=== PATIENT | female | born 1990 | race African-American/Black ===

== ENCOUNTER 2017-02-18 21:38 | Emergency (ER) | payer OTHER ==
[~2017-02-18] VITALS: Ht 162.6 cm; Wt 73.5 kg
[2017-02-18] MEDS ORDERED: IBUP600T26 PO (21:53)
[2017-02-18] MEDS ORDERED: TYLE325T5 PO (21:53)
[2017-02-19 02:50] LABS: BASO % 0.3 % (0.0-1.0); EOS # 0.1 K/mm3 (0.0-0.50); EOS % 1.8 % (0.0-3.0); LARGE UNSTAINED CELL # 0.2 K/mm3 (0.0-0.4); LARGE UNSTAINED CELL % 2.5 % (0.0-4.0); LYMPH # 1.8 K/mm3 (1.5-6.5); LYMPH % 27.1 % (24.0-44.0); MEAN CORPUSCULAR HEMOGLOBIN 30.3 pg (27.0-33.0); MEAN CORPUSCULAR HGB CONC 32.5 g/dl (32.0-36.5); MEAN CORPUSCULAR VOLUME 93.1 fl (80.0-96.0); MONO # 0.3 K/mm3 (0.0-0.8); MONO % 5.2 % (0.0-5.0); NEUTROPHILS # 3.7 K/mm3 (1.8-7.7); PLATELET COUNT, AUTOMATED 224 k/mm3 (150-450); RED CELL DISTRIBUTION WIDTH 13.6 % (11.5-14.5); WHITE BLOOD COUNT 5.9 K/mm3 (4.0-10.0)
[2017-02-19 03:09] LABS: ANION GAP 6 MEQ/L (8-16); BLOOD UREA NITROGEN 15 MG/DL (7-18); CALCIUM LEVEL 9.1 MG/DL (8.5-10.1); CARBON DIOXIDE LEVEL 28 MEQ/L (21-32); CHLORIDE LEVEL 107 MEQ/L (98-107); CREATININE FOR GFR 0.66 MG/DL (0.55-1.02); GLOMERULAR FILTRATION RATE > 60.0 (>60); GLUCOSE, FASTING 95 MG/DL (70-105); POTASSIUM SERUM 3.9 MEQ/L (3.5-5.1); SODIUM LEVEL 141 MEQ/L (136-145)
[2017-02-19] MEDS ORDERED: METOCLOPRAMIDE INJ 10MG/2ML VIAL (J2765) IV ONE (04:30)
[2017-02-19] MEDS ORDERED: NS 1,000 ML IV ONE (04:30)
--- NOTE | 2017-02-19 05:20 | REPUSA ---
CLINICAL HISTORY: Headaches. TECHNIQUE: Multiple axial brain CT scan sections were obtained from base to vertex without contrast a dministration. COMMENTS: The study shows normal configuration of sella turcica. There are no intra or extra-axial collections. There is no mass effect or midline shift. There is no evidence of hematoma formation. No hydrocephal us is present. No abnormal calcifications are noted. No significant abnormalities are seen either in the posterior fossa or supratentorial compartment. The sinuses and mastoid air cells are patent. IMPRESSION: No evidence of acute intracranial pathology. Thank you for your kind referral of this patient.
[2017-02-19 06:13] VITALS: BP 113/55
== END 2017-02-19 06:21 | disposition home or self-care (01) ==
LOC: M ED 02-19 00:22
DX: R51 Headache (principal); R11.2 Nausea with vomiting, unspecified

== ENCOUNTER → 2018-06-29 | Outpatient (REF) | payer OTHER ==
[2018-06-29 18:13] LABS: HCG, SERUM QUANTITATIVE < 1.0 MIU/ML
== END ==
LOC: M LAB REF 17:05
DX: Z32.00 Encounter for pregnancy test, result unknown (principal)

== ENCOUNTER → 2018-07-22 | Outpatient (REF) | payer OTHER ==
[2018-07-22 13:09] LABS: HCG, SERUM QUANTITATIVE 1246 MIU/ML
== END ==
LOC: M LAB REF 12:25
DX: Z32.00 Encounter for pregnancy test, result unknown (principal)

== ENCOUNTER 2018-07-31 10:15 | Emergency (ER) | payer OTHER ==
[2018-07-31 11:37] LABS: BASO % 0.3 % (0.0-1.0); EOS % 0.6 % (0.0-3.0); HEMATOCRIT 37.1 % (36.0-47.0); HEMOGLOBIN 12.7 g/dl (12.0-15.5); IMMATURE GRANULOCYTE % 0.5 % (0-3.0); MEAN CORPUSCULAR HEMOGLOBIN 30.8 pg (27.0-33.0); MEAN CORPUSCULAR HGB CONC 34.2 g/dl (32.0-36.5); MEAN CORPUSCULAR VOLUME 89.8 fl (80.0-96.0); MONO # 0.6 10^3/uL (0.0-0.8); MONO % 8.3 % (0.0-5.0); NEUTROPHILS % 60.3 % (36.0-66.0); PLATELET COUNT, AUTOMATED 246 10^3/uL (150-450); RED BLOOD COUNT 4.13 10^6/uL (4.00-5.40); RED CELL DISTRIBUTION WIDTH 13.3 % (11.5-14.5); WHITE BLOOD COUNT 6.6 10^3/uL (4.0-10.0)
[2018-07-31 11:40] LABS: HCG, SERUM QUANTITATIVE 23023 MIU/ML
[2018-07-31 13:13] LABS: TYPE AND SCREEN 1 1
[2018-07-31] MEDS: RHOGAM 300 MCG (1500 IU) INJ (J2790) IM (13:30)
== END 2018-07-31 14:03 | disposition home or self-care (01) ==
LOC: M ED 10:15
PROVIDERS: Surgery Vascular Surgery
DX: O20.9 Hemorrhage in early pregnancy, unspecified (principal); Z3A.01 Less than 8 weeks gestation of pregnancy
CPT/HCPCS: 76801

== ENCOUNTER → 2018-08-16 | Outpatient (CLI) | payer OTHER ==
[2018-08-16 13:36] LABS: BASO % 0.5 % (0.0-1.0); EOS % 0.5 % (0.0-3.0); HEMATOCRIT 34.4 % (36.0-47.0); HEMOGLOBIN 11.7 g/dl (12.0-15.5); IMMATURE GRANULOCYTE % 0.2 % (0-3.0); LYMPH # 1.9 10^3/uL (1.5-4.5); LYMPH % 30.2 % (24.0-44.0); MEAN CORPUSCULAR HEMOGLOBIN 30.4 pg (27.0-33.0); MEAN CORPUSCULAR VOLUME 89.4 fl (80.0-96.0); MONO # 0.6 10^3/uL (0.0-0.8); MONO % 9.1 % (0.0-5.0); NEUTROPHILS # 3.7 10^3/uL (1.8-7.7); NEUTROPHILS % 59.5 % (36.0-66.0); PLATELET COUNT, AUTOMATED 226 10^3/uL (150-450); RED BLOOD COUNT 3.85 10^6/uL (4.00-5.40); WHITE BLOOD COUNT 6.1 10^3/uL (4.0-10.0)
[2018-08-16 15:26] LABS: CHLAMYDIA DNA AMPLIFICATION NEGATIVE (NEGATIVE); GC DNA AMPLIFICATION NEGATIVE (NEGATIVE)
[2018-08-17 08:15] LABS: HEPATITIS C VIRUS ABY INDEX 0.1 INDEX (<0.8)
[2018-08-17 08:15] LABS: HBsAg Prenatal NEGATIVE (NEGATIVE); HIV 1&2 SCREEN CENTAUR NEGATIVE (NEGATIVE); RUBELLA IgG QUALITATIVE IMMUNE (IMMUNE)
== END ==
LOC: M SMT 10:19
DX: Z34.81 Encounter for supervision of other normal pregnancy, first trimester (principal); Z3A.08 8 weeks gestation of pregnancy
CPT/HCPCS: 86762

== ENCOUNTER → 2018-09-15 | Outpatient (REF) | payer OTHER ==
[~2018-09-15] MED LIST: IBUP-1022 PO; PRENTAB77 PO; TYLE325T5 PO
== END ==
LOC: M LAB REF 13:00
PROVIDERS: ATTEND Obstetrics & Gynecology
DX: Z34.81 Encounter for supervision of other normal pregnancy, first trimester (principal)

== ENCOUNTER → 2018-10-21 | Outpatient (CLI) | payer OTHER ==
--- NOTE | 2018-10-21 15:58 | REP ---
Obstetric sonography: History: Supervision of for anatomy. Findings: Scanning through the gravid uterus demonstrates a viable single intrauterine gestation in a vertex lie. motion is observed and heart rate is recorded at 160 beats per minute. An anterior grade 1 placenta is seen without evidence of previa or abruption. Amniotic fluid is subjectively normal. Closed cervical length is measured transvaginally at 4.1 cm. Cervix is closed. A small quantity of endocervical fluid is seen. No extrauterine abnormalities observed. There has been appropriate interval growth. No anomaly is seen. Four-chamber heart and outflow tract views are less than optimally seen today due to position. The following additional anatomic structures are identified today and felt to be unremarkable: cranium, choroid plexus, cavum, cerebellum posterior fossa, face and profile, lungs, diaphragm, left-sided stomach, abdominal wall cord insertion, three-vessel umbilical cord, kidneys and bladder, spine, upper and lower extremities. Biometry chart: BPD 4.1 cm 18 weeks 2 days Head circumference 14.8 cm 17 weeks 6 days Abdominal circumference 13.3 cm 18 weeks 5 days Femur length 2.7 cm 18 weeks 2 days Humeral length 2.8 cm 18 weeks 6 days Cerebellar diameter 1.7 cm 17 weeks 2 days HC/AC ratio normal 1.11 cephalic index normal 0.77, estimated weight 241 grams, 0 pounds 8 ounces, 60th percentile for 18 weeks 1 days. Impression: Viable single intrauterine gestation at 18 weeks 1 day by today's composite criteria for expected gestational age estimate based on prior sonography is 18 weeks 1 day as well. SABI by prior sonography March 23, 2019. heart visualization is less than optimally achieved due to position. Electronically Signed by Tanner Garcia MD 10/21/2018 04:45 P
== END ==
LOC: M SMT 12:18
PROVIDERS: ATTEND Obstetrics & Gynecology
DX: Z36.89 Encounter for other specified antenatal screening (principal); Z3A.18 18 weeks gestation of pregnancy

== ENCOUNTER 2018-11-13 14:34 | Emergency (ER) | payer OTHER ==
[~2018-11-13] VITALS: Ht 162.6 cm; Wt 81.4 kg
[2018-11-13] MEDS ORDERED: PROM25TA22 (14:44)
[2018-11-13] MEDS ORDERED: RANI150T (14:44)
[2018-11-13] MEDS ORDERED: ACET1TAB55 PO (14:44)
[2018-11-13 15:13] LABS: BASO % 0.4 % (0.0-1.0); EOS # 0.1 10^3/uL (0.0-0.50); EOS % 0.5 % (0.0-3.0); HEMATOCRIT 34.2 % (36.0-47.0); HEMOGLOBIN 11.8 g/dl (12.0-15.5); LYMPH # 1.5 10^3/uL (1.5-4.5); LYMPH % 15.8 % (24.0-44.0); MEAN CORPUSCULAR HEMOGLOBIN 32.3 pg (27.0-33.0); MEAN CORPUSCULAR HGB CONC 34.5 g/dl (32.0-36.5); MEAN CORPUSCULAR VOLUME 93.7 fl (80.0-96.0); MONO # 1.1 10^3/uL (0.0-0.8); MONO % 11.3 % (0.0-5.0); NEUTROPHILS # 6.9 10^3/uL (1.8-7.7); PLATELET COUNT, AUTOMATED 218 10^3/uL (150-450); RED BLOOD COUNT 3.65 10^6/uL (4.00-5.40); WHITE BLOOD COUNT 9.8 10^3/uL (4.0-10.0)
[2018-11-13] MEDS ORDERED: NS 1,000 ML IV ONE (15:30)
[2018-11-13] MEDS ORDERED: ONDANSETRON 4MG/2ML VIAL (J2405) IV ONE (15:30)
[2018-11-13] MEDS ORDERED: diphenhydrAMINE INJ 50MG/ML VIAL (J1200) IV ONE (15:30)
[2018-11-13 15:38] LABS: INR 0.86; PROTHROMBIN TIME 11.8 SECONDS (12.1-14.4)
[2018-11-13 15:39] LABS: PARTIAL THROMBOPLASTIN TIME 24.6 SECONDS (25.4-37.6)
[2018-11-13 15:41] LABS: ALBUMIN 2.7 GM/DL (3.2-5.2); ALT/SGPT 64 U/L (12-78); BILIRUBIN,TOTAL 0.1 MG/DL (0.2-1.0); BLOOD UREA NITROGEN 4 MG/DL (7-18); CALCIUM LEVEL 8.7 MG/DL (8.5-10.1); CARBON DIOXIDE LEVEL 23 MEQ/L (21-32); CHLORIDE LEVEL 103 MEQ/L (98-107); CK-MB VALUE MASS < 1.0 NG/ML (<3.6); CPK CREATINE PHOSPHOKINASE 52 U/L (26-192); CREATININE FOR GFR 0.58 MG/DL (0.55-1.30); GLOMERULAR FILTRATION RATE > 60.0 (>60); GLUCOSE, FASTING 248 MG/DL (70-100); MB/CK RELATIVE INDEX 1.92 (< OR =4); POTASSIUM SERUM 3.9 MEQ/L (3.5-5.1); SODIUM LEVEL 136 MEQ/L (136-145); TOTAL PROTEIN 6.7 GM/DL (6.4-8.2); TROPONIN I < 0.02 NG/ML (< 0.10)
[2018-11-13 15:58] LABS: APPEARANCE, URINE CLEAR (CLEAR); BACTERIA, URINE AUTO NEGATIVE (NEGATIVE); BILIRUBIN, URINE AUTO NEGATIVE (NEGATIVE); BLOOD, URINE BLOOD 1+ (NEGATIVE); COLOR, URINE STRAW (YELLOW); GLUCOSE, URINE (UA) AUTO 3+ mg/dL (NEGATIVE); KETONE, URINE AUTO NEGATIVE (NEGATIVE); LEUKOCYTE ESTERASE, URINE AUTO NEGATIVE (NEGATIVE); NITRITE, URINE AUTO NEGATIVE (NEGATIVE); PROTEIN, URINE AUTO NEGATIVE (NEGATIVE); RBC, URINE AUTO 1 /HPF (0-3); SPECIFIC GRAVITY URINE AUTO 1.001 (1.002-1.035); SQUAMOUS EPITHELIAL CELL UR AU 1 /HPF (0-6); UROBILINOGEN, URINE AUTO 0.2 mg/dL (0.0-2.0); WBC, URINE AUTO 0 /HPF (0-3)
[2018-11-13] MEDS ORDERED: ISOVUE-370 76% 100ML VIAL (Q9967) As Ordered ONE (16:11)
--- NOTE | 2018-11-13 16:45 | ECGEPIP ---
Stationary ECG Study [place] - ED Test Date: 2018-11-13 Pat Name: ANTHONY ISAACS Department: Room: - Gender: F Program Technician: max : 1990 Requested By: JOHN Warner PA-C Order Number: [id number] Reading MD: Aye Cortez Measurements Intervals [place] Rate: 119 P: 28 CA: 133 QRS: 20 QRSD: 85 T: 11 QT: 295 QTc: 416 Interpretive Statements SINUS TACHYCARDIA NONSPECIFIC T-WAVE ABNORMALITY ABNORMAL RHYTHM ECG NO PRIOR FOR COMPARISON Electronically Signed On 11-13-2018 16:44:53 EST by Aye Cortez
[2018-11-13] MEDS ORDERED: FIORICET TAB PO ONE (18:45)
[2018-11-13] MEDS ORDERED: FIOR1CAP PO (18:46)
[2018-11-13] MEDS ORDERED: ONDA4TAB6 PO (18:46)
[2018-11-13 18:53] VITALS: BP 147/59
--- NOTE | 2018-11-14 07:24 | REP ---
CT ANGIOGRAM CHEST: 11/13/2018. Clinical history: 21 - 22 weeks , dyspnea, tachycardia, evaluate for pulmonary emboli. Technique: The patient received bolus 75 ml Isovue 370, scanning through the chest with CT angiogram protocol. Coronal and sagittal MIP and standard reformats provided. Findings: There are no prior studies. Lung ramos are well inflated. There is no effusion, infiltrate, significant atelectasis or mass. No pleural plaques, pneumothorax or pneumomediastinum. The heart is not enlarged. There no pericardial thickening or effusion. Aorta is without aneurysm or dissection. The main, right and left pulmonary arteries in the mediastinum are without filling defect. The lobar, segmental and subsegmental pulmonary arteries are well seen and without filling defect or vessel cutoff. No pathologic sized mediastinal or hilar adenopathy. There is no axillary or supraclavicular mass. Bone windows show sternum, manubrium, clavicles, scapula, humeral heads, ribs and spine all without fracture, destructive lesion or compression deformity. Upper abdomen shows that portion of the liver and spleen to be unremarkable. Only a portion of gallbladder and pancreas are included and are intact. No hiatal hernia. Adrenal glands are normal. Upper poles kidneys intact. Impression: 1. No CT evidence of pulmonary thromboembolism. 2. No aortic aneurysm or dissection. 3. There is no consolidation or infiltrate, pneumothorax, pneumomediastinum, focal bone lesion of the chest or other acute finding. 4. Visualized portions of the upper abdomen unremarkable. Electronically Signed by Felix Main MD 11/14/2018 09:23 A
== END 2018-11-13 19:14 | disposition home or self-care (01) ==
LOC: M ED 14:34
DX: O24.419 Gestational diabetes mellitus in pregnancy, unspecified control (principal); O99.89 Other specified diseases and conditions complicating pregnancy, childbirth and the puerperium; R51 Headache; R00.0 Tachycardia, unspecified; R94.31 Abnormal electrocardiogram [ECG] [EKG]; Z3A.22 22 weeks gestation of pregnancy; Z79.899 Other long term (current) drug therapy
CPT/HCPCS: 71275; 80053; 81001; 82550; 82553; 84484; 85025; 85610; 85730; 86901; 93005; 96374; 96375; 99284; J1200; J2405; Q9967

== ENCOUNTER → 2018-11-18 | Outpatient (CLI) | payer OTHER ==
[~2018-11-18] MED LIST changes: +ACET1TAB55 PO; +FIOR1CAP PO; +ONDA4TAB6 PO; +PROM25TA22; +RANI150T
[2018-11-18 14:21] LABS: HEMATOCRIT 33.6 % (36.0-47.0); HEMOGLOBIN 11.2 g/dl (12.0-15.5); MEAN CORPUSCULAR HEMOGLOBIN 31.6 pg (27.0-33.0); MEAN CORPUSCULAR HGB CONC 33.3 g/dl (32.0-36.5); MEAN CORPUSCULAR VOLUME 94.9 fl (80.0-96.0); PLATELET COUNT, AUTOMATED 219 10^3/uL (150-450); RED BLOOD COUNT 3.54 10^6/uL (4.00-5.40); WHITE BLOOD COUNT 7.9 10^3/uL (4.0-10.0)
--- NOTE | 2018-11-18 14:59 | REP ---
Clinical: Anatomical evaluation. Comparison: 10/21/2018 . Findings: Examination demonstrates a single live intrauterine in cephalic presentation. motion is identified by technologist. Placenta is noted anterior and grade the grade one without evidence for placenta previa or abruption. Amniotic fluid volume is increased and suggests polyhydramnios. Cervix measures 4.4 cm in length and appears closed. Nuchal cord cannot be excluded. Gestational age by LMP 22 weeks 1 day with SABI 03/23/2019 . Gestational age by current measurements 22 weeks 0 days with SABI 03/24/2019 . FHR equals 144 beats per minute. Estimated weight 533 grams ( 68th percentile). Amniotic fluid index: 21.5 cm (9.7 - 21.6). Anatomical assessment demonstrates normal structures including cranium, choroid plexus, cavum, cerebellum/posterior fossa, facial features, lungs, four-chamber heart/ventricular outflow tracts, diaphragm, stomach, cord insertion/three-vessel cord, kidneys/bladder, spine, and extremities. Impression: 1. Single live intrauterine in cephalic presentation demonstrating appropriate interval growth. 2. Amniotic fluid volume is at upper limits of normal and subjectively suggests polyhydramnios. 3. Anatomical assessment is complete and normal. 4. Nuchal cord cannot be excluded. Electronically Signed by Sam Joe MD 11/18/2018 02:51 P
== END ==
LOC: M SMT 09:32
PROVIDERS: ATTEND Obstetrics & Gynecology
DX: Z34.82 Encounter for supervision of other normal pregnancy, second trimester (principal)

== ENCOUNTER → 2018-12-16 | Outpatient (CLI) | payer OTHER ==
[2018-12-16 13:16] LABS: BASO % 0.4 % (0.0-1.0); EOS % 0.4 % (0.0-3.0); HEMATOCRIT 30.7 % (36.0-47.0); LYMPH # 1.4 10^3/uL (1.5-4.5); LYMPH % 19.8 % (24.0-44.0); MEAN CORPUSCULAR HEMOGLOBIN 31.2 pg (27.0-33.0); MEAN CORPUSCULAR HGB CONC 32.6 g/dl (32.0-36.5); MEAN CORPUSCULAR VOLUME 95.6 fl (80.0-96.0); MONO % 13.7 % (0.0-5.0); NEUTROPHILS # 4.7 10^3/uL (1.8-7.7); NEUTROPHILS % 64.5 % (36.0-66.0); PLATELET COUNT, AUTOMATED 195 10^3/uL (150-450); RED BLOOD COUNT 3.21 10^6/uL (4.00-5.40); WHITE BLOOD COUNT 7.2 10^3/uL (4.0-10.0)
[2018-12-16 13:32] LABS: HEMOGLOBIN A1c 7.8 %
--- NOTE | 2018-12-16 14:23 | REP ---
OBSTETRIC SONOGRAPHY: HISTORY: Supervision of . growth study. Biophysical profile. Gestational diabetes. FINDINGS: Scanning through the gravid uterus demonstrates a viable single intrauterine gestation in a cephalic lie. motion is observed, and heart rate is recorded at 153 beats per minute. An anterior grade 1 placenta is seen without evidence of previa. Amniotic fluid is subjectively increased. Closed cervical length viewed transabdominally is 5.5 cm. No extrauterine abnormalities observed. There has been appropriate interval growth. The following anatomic structures are again identified and felt to be unremarkable: cranium, face and profile, diaphragm, left-sided stomach, abdominal wall cord insertion, three-vessel cord, kidneys, and bladder. BIOMETRY CHART: BPD 6.6 cm = 26 weeks 5 days Head circumference 24.1 cm = 26 weeks 2 days Abdominal circumference 24.5 cm = 28 weeks 5 days Femur length 5.0 cm = 26 weeks 6 days Humeral length 4.7 cm = 27 weeks 4 days HC/AC ratio normal 0.98 Cephalic index normal 0.77 Estimated weight 1120 grams, 2 pounds 7 ounces, 89th percentile for 26 weeks 1 day. JENA 18.8 cm (9.7 to 22.3 cm. Biophysical profile score 8 out of a possible 8. S/D ratio in the umbilical cord artery by Doppler normal 3.80. IMPRESSION: Viable single intrauterine gestation at 26 weeks 4 days by today's composite sonographic criteria. Expected gestational age estimate based on prior sonography is 26 weeks 1 day. SABI by prior sonography March 23, 2019. Appropriate interval growth. Subjectively increased amniotic fluid volume. JENA in the normal range at 18.8 cm. Electronically Signed by Tanner Garcia MD 12/16/2018 04:14 P
== END ==
LOC: M SMT 09:12
PROVIDERS: ATTEND Obstetrics & Gynecology
DX: O24.112 Pre-existing type 2 diabetes mellitus, in pregnancy, second trimester (principal); Z3A.26 26 weeks gestation of pregnancy

== ENCOUNTER → 2019-01-05 | Outpatient (CLI) | payer OTHER ==
--- NOTE | 2019-01-06 05:11 | REP ---
Clinical: Anatomical evaluation. Comparison: 12/16/2018 . Findings: Examination demonstrates a single live intrauterine in breech presentation. motion is identified by technologist. Placenta is noted anterior and grade II without evidence for placenta previa or abruption. Polyhydramnios is appreciated and the amniotic fluid index equals 32.9 cm. Cervix appears closed. No evidence for nuchal cord. Gestational age by LMP 29 weeks 0 days with SABI 03/23/2019 . Gestational age by current measurements 30 weeks 3 day with SABI 03/13/2019 . FHR equals 157 beats per minute. BPD 7.5 cm 30 weeks 1 day HC 27.5 cm 30 weeks 1 day AC 29.0 cm 33 weeks 0 days (greater than 95th percentile) FL 5.6 cm 29 weeks 4-day HL 5.0 cm 29 weeks 1 day HC/AC ratio 0.95 Estimated weight 1767 grams (> 97% percentile). Anatomical assessment demonstrates normal structures including cranium, choroid plexus, cavum, cerebellum/posterior fossa, facial features, lungs, four-chamber heart/ventricular outflow tracts, diaphragm, stomach, cord insertion/three-vessel cord, kidneys/bladder, spine, and extremities. Impression: 1. Live fetus in breech presentation demonstrating greater than expected estimated weight. 2. Polyhydramnios. 3. No obvious anatomical abnormality. Electronically Signed by Sam Joe MD 01/06/2019 05:03 A
== END ==
LOC: M RAD 13:31
PROVIDERS: ATTEND Obstetrics & Gynecology
DX: O24.112 Pre-existing type 2 diabetes mellitus, in pregnancy, second trimester (principal)

== ENCOUNTER → 2019-01-16 | Outpatient (CLI) | payer OTHER ==
--- NOTE | 2019-01-16 14:07 | REP ---
OB ULTRASOUND, BIOPHYSICAL PROFILE: Real-time sonographic evaluation of gravid uterus performed. There is a single living intrauterine gestation, estimated gestational age 30 weeks 4 days, EDC 03/23/2019. Cervix is closed and measures 3.7 cm in length. heart rate 136 beats per minute. Amniotic fluid appears polyhydramnios. JENA is 32.9, which is above normal range of 8.9 to 23.6. Biophysical profile score is 8/8. S/D ratio 2.96 is below normal range of 3.3 to 4.7. RI 0.66 is within normal range of 6.63 to 0.79. position is vertex. Placenta is anterior and grade 2 with no previa or abruption. Electronically Signed by Melchor Miles MD 01/16/2019 05:42 P
== END ==
LOC: M RAD 12:12
PROVIDERS: ATTEND Obstetrics & Gynecology
DX: O24.113 Pre-existing type 2 diabetes mellitus, in pregnancy, third trimester (principal); Z3A.30 30 weeks gestation of pregnancy

== ENCOUNTER 2019-01-25 14:23 | Outpatient (CLI) | payer OTHER ==
[~2019-01-25] VITALS: Ht 162.6 cm; Wt 93.4 kg
[2019-01-25 14:45] VITALS: BP 120/68
[2019-01-25 15:06] VITALS: BP 104/57
--- NOTE | 2019-01-25 15:59 | REP ---
BIOPHYSICAL PROFILE: HISTORY: Nonreactive NST. COMPARISON: 01/16/2019 A single intrauterine is present in vertex presentation. heart rate is 144 beats per minute. The placenta is anterior. There is no placenta previa or abruption. The amniotic fluid index is 17.6 cm. Biophysical profile is 8/8. PSV is 47 cm/s. SD ratio 2.69. RI 0.63 IMPRESSION:The biophysical profile is 8/8. Electronically Signed by Mikel Blount MD 01/25/2019 04:12 P
--- NOTE | 2019-01-25 16:44 | IPN ---
DATE: 01/25/2019 Kristy is a 28-year-old 2, para 1-0-0-1 at 31-6/7 weeks gestation with an EDC of 03/23/2019 based on last menstrual period and confirmed by first trimester ultrasound. She presents to labor and delivery today following routine visit in the office with a nonreactive NST. She denies any vaginal bleeding, leakage of fluid and contractions. Her fetus has been active. care initiated at [facility] in the first trimester. course complicated by a prior section with desire for repeat, insulin dependent diabetes, polyhydramnios. OBSTETRICAL HISTORY February 26, 2011: 40 weeks gestation, 9 pounds 12 ounces male, section due to macrosomia. OBSTETRIC LABS: A-, antibody screen negative, rubella immune, VDRL nonreactive. Hep B surface antigen negative, HIV negative. Hep C antibody nonreactive. Gonorrhea, chlamydia negative. Hemoglobin A1c 7.8 with an estimated average glucose 177. Urine culture no growth. PAST MEDICAL HISTORY Noncontributory. SURGERIES section. FAMILY HISTORY Asthma. SOCIAL HISTORY The patient is . She is a nonsmoker. Denies alcohol and drug use. No history of any sexually transmitted infections. Denies history of abuse physical, sexual and emotional. ALLERGIES: No known drug allergies. CURRENT MEDICATIONS - insulin regimen every a.m. 48 units of NPH, 30 of regular every p.m. and 34 units of NPH, 26 of regular. - vitamins - Zofran as needed (p.r.n.) - Zantac 150 by mouth twice a day OBJECTIVE Temperature 97.4, pulse 129, respirations 16, BP is 120/68, heart rate 145 with moderate variability. She underwent a biophysical profile that returned a score of 8 out of 8. Her amniotic fluid index is 17.6 cm today. Fetus is in cephalic presentation. There is no pattern of regular contractions. Sterile vaginal exam deferred. ASSESSMENT Intrauterine at 31-6/7 weeks. BPP 8 out of 8. Insulin-dependent diabetes. PLAN Per consult with Dr. Arabella Matson discharge the patient to home. She is to continue her insulin as ordered. Continue antepartum testing ,weekly visits. The plan is for section, currently at 37 weeks. I did review signs and symptoms of labor, kick counts and danger signs to report. Reviewed access to care. The patient has had all her questions answered and is agreeable to this plan. JOSE
== END 2019-01-25 16:49 | disposition home or self-care (01) ==
LOC: M LDO 14:23
PROVIDERS: ATTEND Obstetrics & Gynecology
DX: O26.893 Other specified pregnancy related conditions, third trimester (principal); Z3A.31 31 weeks gestation of pregnancy; O24.313 Unspecified pre-existing diabetes mellitus in pregnancy, third trimester; Z87.59 Personal history of other complications of pregnancy, childbirth and the puerperium
CPT/HCPCS: 59025; 76815; 76819; 76820; G0378; G0463

== ENCOUNTER → 2019-02-02 | Outpatient (CLI) | payer OTHER ==
--- NOTE | 2019-02-03 05:26 | REP ---
Clinical: well-being. Comparison: 01/25/2019 . Findings: Examination demonstrates a single live intrauterine in cephalic presentation. motion is identified by technologist. Placenta is noted anterior and grade grade II without evidence for placenta previa or abruption. Amniotic fluid volume is normal. Cervix appears closed. No evidence for nuchal cord. Gestational age by LMP 33 weeks 0 days with SABI 03/23/2019 . Gestational age by current measurements 34 weeks 6 days with SABI 03/10/2019 . FHR equals 147 beats per minute. BPD 8.5 cm 34 weeks 1 day HC 31.8 cm 35 weeks 5 days AC 33.1 cm 37 weeks 0 days FL 6.3 cm 32 weeks 4-day HC/AC ratio 0.96 Estimated weight 2683 grams ( 95th percentile based on age by LMP ). Amniotic fluid index: 18.1 cm Biophysical profile score: 8/8 Impression: Single live intrauterine in cephalic presentation demonstrating appropriate interval growth. No gross abnormalities are identified. Electronically Signed by Sam Joe MD 02/03/2019 05:17 A
== END ==
LOC: M RAD 13:06
PROVIDERS: ATTEND Obstetrics & Gynecology
DX: O24.113 Pre-existing type 2 diabetes mellitus, in pregnancy, third trimester (principal); Z3A.33 33 weeks gestation of pregnancy

== ENCOUNTER → 2019-02-09 | Outpatient (CLI) | payer OTHER ==
--- NOTE | 2019-02-10 16:25 | REP ---
Clinical: Gestational diabetes for well being Comparison: 02/02/2019 . Findings: Examination demonstrates a single live intrauterine in cephalic presentation. motion is identified by technologist. Placenta is noted anterior and grade grade II without evidence for placenta previa or abruption. Amniotic fluid volume is normal. Cervix appears closed. Nuchal cord cannot be excluded. Gestational age by LMP 34 weeks 0 days with SABI 03/23/2019 . Gestational age by first US measurements 33 weeks 4 days with SABI 03/26/2019 . FHR equals 134 beats per minute. BPP equals 8/8 Amniotic fluid index: 11.3 cm Umbilical cord SD ratio: 1.98 (2.00 - 3.00). Impression: Single live advanced gestation in cephalic presentation. Biophysical profile score and amniotic fluid volume normal. Umbilical cord SD ratio just below normal range. Nuchal cord cannot be excluded. Electronically Signed by Sam Joe MD 02/10/2019 04:17 P
== END ==
LOC: M RAD 14:10
PROVIDERS: ATTEND Obstetrics & Gynecology
DX: O24.113 Pre-existing type 2 diabetes mellitus, in pregnancy, third trimester (principal); Z3A.33 33 weeks gestation of pregnancy

== ENCOUNTER → 2019-02-16 | Outpatient (CLI) | payer OTHER ==
[~2019-02-16] MED LIST changes: +COLA100C5 PO; +IBUP80TA PO; +OXYC1TAB23 PO
--- NOTE | 2019-02-16 15:14 | REP ---
Clinical: History of diabetes for well being. Comparison: 02/09/2019 . Findings: Examination demonstrates a single live intrauterine in cephalic presentation. motion is identified by technologist. Placenta is noted anterior and grade grade II/III without evidence for placenta previa or abruption. Amniotic fluid volume is normal. Cervix appears closed. No evidence for nuchal cord. Gestational age by LMP 35 weeks 0 days with SABI 03/23/2019 . FHR equals 149 beats per minute. BPP: 8/8 Amniotic fluid index: 14.6 cm (7.9 - 24.9) Umbilical cord SD ratio: 2.11 (2.00 - 3.00). Impression: Single live advanced gestation in cephalic presentation demonstrating normal biophysical profile score and amniotic fluid volume. Electronically Signed by Sam Joe MD 02/16/2019 03:05 P
== END ==
LOC: M RAD 14:08
PROVIDERS: ATTEND Obstetrics & Gynecology
DX: O24.113 Pre-existing type 2 diabetes mellitus, in pregnancy, third trimester (principal); Z3A.35 35 weeks gestation of pregnancy

== ENCOUNTER 2019-02-22 14:07 | Inpatient (IN) | payer OTHER ==
[~2019-02-22] VITALS: Ht 162.6 cm; Wt 81.2 kg
[2019-02-22] VITALS (7 sets, daily range): BP systolic 104–127; BP diastolic 55–70
[~2019-02-22 14:07] MED LIST changes: -COLA100C5 PO; -IBUP80TA PO; -OXYC1TAB23 PO
[2019-02-22] MEDS ORDERED: D5W/0.9% SODIUM CHLORIDE 1,000 ML IV SCH (14:45)
[2019-02-22 15:10] LABS: HEMATOCRIT 28.5 % (36.0-47.0); HEMOGLOBIN 9.1 g/dl (12.0-15.5); MEAN CORPUSCULAR HEMOGLOBIN 27.7 pg (27.0-33.0); MEAN CORPUSCULAR HGB CONC 31.9 g/dl (32.0-36.5); MEAN CORPUSCULAR VOLUME 86.6 fl (80.0-96.0); PLATELET COUNT, AUTOMATED 190 10^3/uL (150-450); RED BLOOD COUNT 3.29 10^6/uL (4.00-5.40); WHITE BLOOD COUNT 8.1 10^3/uL (4.0-10.0)
[2019-02-22] MEDS ORDERED: INSULIN HUMAN REGULAR 100 UNITS in NS 99 ML IV SCH (16:00)
[2019-02-22] MEDS ORDERED: INSULIN IV RATE CHANGE DOCUMENTATION ML/HR XX SCH (16:00)
[2019-02-22] MEDS: NS 1,000 ML IV SCH (16:09)
--- NOTE | 2019-02-22 16:36 | REP ---
OB ULTRASOUND: Real-time sonographic evaluation of the gravid uterus performed. There is a single living intrauterine gestation, the estimated gestational age 35 weeks 6 days, EDC 03/23/2019. Today's measurements indicate appropriate growth. BPD 91 mm = 37 weeks 0 days, 65th percentile HC 326 mm = 37 weeks 0 days, 67th percentile AC 331 mm = 37 weeks 0 days, 67th percentile FL 73 mm = 37 weeks 4 days, 74th percentile HC/AC ratio 0.98 within normal range. Estimated weight 3130 grams, 73rd percentile. heart rate 152 beats per minute. Amniotic fluid within normal limits, JENA 24.0 within normal range of 7.7 to 24.9. Biophysical profile score 8/8. S/D ratio 2.59 within normal range 2.0 to 3.0. RI 0.61 within normal range 0.59 to 0.75. Visualized anatomy today includes stomach, three vessel cord, kidneys, which are all grossly unremarkable. position vertex. Placenta anterior and grade 3 with no previa or abruption. Electronically Signed by Melchor Miles MD 02/22/2019 04:52 P
[2019-02-22] MEDS ORDERED: BETAMETHASONE SOLUSPAN 6MG/ML INJ 5ML (J0702) IM SCH (20:00)
[2019-02-23] VITALS (12 sets, daily range): BP systolic 94–130; BP diastolic 51–68
[2019-02-23] MEDS: NS 1,000 ML IV SCH (00:12)
[2019-02-23] MEDS: INSULIN HUMAN REGULAR 100 UNITS in NS 99 ML IV SCH ×6 (02:00→08:12)
[2019-02-23 08:42] LABS: ALBUMIN 2.5 GM/DL (3.2-5.2); ALT/SGPT 18 U/L (12-78); BILIRUBIN,TOTAL 0.3 MG/DL (0.2-1.0); BLOOD UREA NITROGEN 5 MG/DL (7-18); CALCIUM LEVEL 9.6 MG/DL (8.5-10.1); CARBON DIOXIDE LEVEL 20 MEQ/L (21-32); CHLORIDE LEVEL 107 MEQ/L (98-107); CREATININE FOR GFR 0.59 MG/DL (0.55-1.30); GLOMERULAR FILTRATION RATE > 60.0 (>60); GLUCOSE, FASTING 104 MG/DL (70-100); POTASSIUM SERUM 4.2 MEQ/L (3.5-5.1); SODIUM LEVEL 138 MEQ/L (136-145); TOTAL PROTEIN 6.2 GM/DL (6.4-8.2)
[2019-02-23 09:07] LABS: HEMATOCRIT 26.8 % (36.0-47.0); HEMOGLOBIN 8.4 g/dl (12.0-15.5); MEAN CORPUSCULAR HEMOGLOBIN 26.7 pg (27.0-33.0); MEAN CORPUSCULAR HGB CONC 31.3 g/dl (32.0-36.5); MEAN CORPUSCULAR VOLUME 85.1 fl (80.0-96.0); PLATELET COUNT, AUTOMATED 199 10^3/uL (150-450); RED BLOOD COUNT 3.15 10^6/uL (4.00-5.40); WHITE BLOOD COUNT 7.7 10^3/uL (4.0-10.0)
[2019-02-23] MEDS ORDERED: BICITRA 30ML SOLN UDC PO ONE (09:45)
[2019-02-23] MEDS ORDERED: NALBUPHINE HCL 10 MG/ML AMP (J2300) IV PRN ×2 (10:55→12:45)
[2019-02-23] MEDS ORDERED: NALOXONE INJ 0.4 MG/1 ML VIAL (J2310) IV PRN ×2 (10:55)
[2019-02-23] MEDS ORDERED: diphenhydrAMINE INJ 50MG/ML VIAL (J1200) IV PRN (10:55)
[2019-02-23] MEDS ORDERED: ONDANSETRON 4MG/2ML VIAL (J2405) IV PRN ×3 (10:55→12:45)
[2019-02-23] MEDS ORDERED: BETAMETHASONE SOLUSPAN 6MG/ML INJ 5ML (J0702) IM ONE (11:00)
--- NOTE | 2019-02-23 11:03 | NUR ---
L&D Note: 28yo at 36wks admitted for DM control, currently on insulin drip. Has done well w/o overnight issues. Has completed course of steroids for FLM. Plan to proceed with delivery 2nd to suboptimal glycemic control. She has h/o prior c/ with PPH requiring 2 units of PRBC. I have discussed plan of care along with mode of delivery options. She has expressed her desire throughout the for repeat c/s. h/h 8.4/26.8 Arabella Matson MD
--- NOTE | 2019-02-23 12:01 | HPE ---
DATE OF ADMISSION: 02/22/2019 REASON FOR ADMISSION: Diabetic control. HISTORY OF PRESENT ILLNESS: This patient is a 28-year-old 2, para 1, who presents at 35 weeks, 6 days estimated gestational age for prolonged monitoring diabetic control. This patient has been followed for insulin dependent diabetes diagnosed during her early parts of her , currently on 50 units of NPH morning and 30 units of regular insulin in the morning, her p.m. dose 40 of NPH and 28 of R. She has been poorly controlled throughout her and presented today for a scheduled appointment with complaints of difficulty breathing and decreased movement. Her blood sugars have been running for the last 4 to 5 days between 190 and 200s. COURSE: Again has been remarkable for insulin dependent diabetes, as well as polyhydramnios. PAST MEDICAL HISTORY: Diabetes. PAST SURGICAL HISTORY: She has had a section. PAST OBSTETRICAL HISTORY: She is a 2, para 1. She had a section 39 weeks and that infant was 9 pounds 12 ounces. That is believed to be complicated by gestational diabetes. MEDICATIONS: Include insulin, vitamins, Zofran, Zantac. ALLERGIES: She had no known drug allergies. PHYSICAL EXAMINATION: Her vital signs are stable. She is afebrile. General appearance: Well appearing, no acute distress. Her lungs are clear to auscultation bilaterally. Cardiovascular: Heart regular rate and rhythm. Her abdomen is gravid, very distended, and she has a category 1 rate tracing and irregular contractions on tocometer. LABS: Her blood type is A negative. Rubella is immune. RPR is nonreactive. Hepatitis surface B antigen negative. HIV is negative. Hepatitis C is nonreactive. Chlamydia and gonorrhea screens are negative. ASSESSMENT: Ms. Vaughn Marshall is a 28-year-old, 2, para 1 at 35 weeks 6 days estimated gestational age by her last menstrual period, confirmed by her first trimester ultrasound with poorly controlled insulin-dependent diabetes. PLAN: 1. Admit to labor and delivery for insulin drip. 2. Biophysical profile. 3. Steroids for lung maturity.
[2019-02-23] MEDS ORDERED: OXYTOCIN DRIP 30 UNITS in APPROPRIATE DILUENT 1 EA IV SCH (12:04)
[2019-02-23] MEDS ORDERED: RHOGAM 300 MCG (1500 IU) INJ (J2790) IM SCH (12:15)
[2019-02-23] MEDS ORDERED: MEASLES,MUMPS,RUBELLA VACCINE INJ (MMR-II) (90707) SC SCH (12:15)
[2019-02-23] MEDS ORDERED: MOM 30ML SUSPENSION UDC PO PRN (12:15)
[2019-02-23] MEDS ORDERED: KETOROLAC 30 MG/ML VIAL (J1885) IV PRN (12:45)
[2019-02-23] MEDS ORDERED: PHENYLEPHRINE HCL INJ 10 MG in D5W 99 ML IV SCH (12:45)
[2019-02-23] MEDS ORDERED: fentaNYL 100 MCG/2 ML INJECTION (J3010) IV PRN (12:45)
[2019-02-23] MEDS: METOCLOPRAMIDE INJ 10MG/2ML VIAL (J2765) IV PRN ×2 (14:40→22:03)
[2019-02-23] MEDS ORDERED: GLUCAGON FOR INJ 1 MG VIAL (J1610) SC PRN (16:15)
[2019-02-23] MEDS ORDERED: GLUCOSE 4 GM CHEW TABLET PO PRN (16:15)
[2019-02-23] MEDS ORDERED: DEXTROSE 50% 50 ML SYRINGE IV PRN (16:15)
--- NOTE | 2019-02-23 17:05 | RO ---
DATE OF PROCEDURE: 02/23/2019 PREOPERATIVE DIAGNOSIS: 1. Poorly controlled insulin dependent diabetes. 2. History of section. 3. Polyhydramnios. POSTOPERATIVE DIAGNOSIS: 1. Poorly controlled insulin dependent diabetes. 2. History of section. 3. Polyhydramnios. PROCEDURE PERFORMED: Primary low transverse section. SURGEON: Arabella Matson MD TESTER EQUIPMENT: Rico Carrasco MD ANESTHESIA: Spinal ESTIMATED BLOOD LOSS: 500 mL INTRAVENOUS FLUIDS: 1100 mL lactated Ringer's solution. URINE OUTPUT: 400 mL PREOPERATIVE ANTIBIOTICS: 2 grams Ancef. SPECIMENS: Cord blood. OPERATIVE FINDINGS: Live born male , Apgars 7 and 8. Weight was 3960 grams or 8012 ounces. DESCRIPTION OF OPERATION: After informed consent was obtained and written consent was reviewed, the patient was brought to the operating room and spinal anesthesia was placed. She was then placed in the lithotomy position with a left lateral tilt. Cobos catheter was placed and set to gravity. She was then prepped and draped in a normal sterile fashion. A time out in the operating room was then performed identifying the patient, procedure to be performed as well as drug allergies. Anesthesia was tested and deemed to be adequate. A Pfannenstiel skin incision was then made along the previous skin incision and this was carried down to underlying rectus fascia. The fascia was scored and this incision was extended bilaterally. The fascia was then dissected off the underlying rectus muscles both superiorly and inferiorly. The rectus muscles were then in the midline. The peritoneum was then entered. The vesicouterine peritoneum was identified, was then excised to create a bladder flap. The Mobius retractor was then placed. Next, a curvilinear incision was then made in the lower uterine segment. Amniotomy was then performed productive of large amounts of amniotic fluid. head was brought to the level of the incision atraumatically and was delivered along with shoulders and corpus. Cord was clamped times two, was cut and infant was taken over to the warmer with good cry. Placenta was then removed. All clots debris were removed. The uterus was then closed in two layers of #0 Vicryl, first in a running locking fashion, followed by a second layer in a running nonlocking fashion. Several [id number] stitches placed for hemostasis. Surgical sites were suspected noted be intact hemostatic. The Mobius retractor was removed. The anterior peritoneum was then reapproximated using #3-0 Vicryl. Rectus muscles were reapproximated using #3-0 Vicryl. The fascia was then closed with #0- Vicryl in a running nonlocking fashion. Subcutaneous tissue was then irrigated and suctioned. Subcutaneous tissue was then closed using #0 Vicryl. Several subdermal stitches placed with #3-0 Vicryl. Skin was closed with #4-0 Monocryl in subcuticular fashion. Incision was then clean and dried and dressed. The patient was then taken to recovery in stable condition. All counts correct. Dr. Carrasco my surgical elastic knitter played an essential role during the surgery. He assisted with tissue retraction and exposure as well as delivery of the and wound closure.
[2019-02-23] MEDS: HumaLOG INSULIN (NovoLOG) PER UNIT SC SCH ×2 (17:49→22:02)
[2019-02-23] MEDS: KETOROLAC 30 MG/ML VIAL (J1885) IV SCH (19:32)
[2019-02-23] MEDS: DOCUSATE SODIUM 100 MG CAP PO SCH ×2 (21:00→21:32)
[2019-02-24] MEDS: KETOROLAC 30 MG/ML VIAL (J1885) IV SCH ×2 (01:57→07:30)
[2019-02-24 02:05] VITALS: BP 97/53
[2019-02-24 06:19] VITALS: BP 112/55
[2019-02-24 06:50] LABS: HEMATOCRIT 26.2 % (36.0-47.0); HEMOGLOBIN 8.4 g/dl (12.0-15.5); MEAN CORPUSCULAR HEMOGLOBIN 26.9 pg (27.0-33.0); MEAN CORPUSCULAR HGB CONC 32.1 g/dl (32.0-36.5); PLATELET COUNT, AUTOMATED 183 10^3/uL (150-450); RED BLOOD COUNT 3.12 10^6/uL (4.00-5.40); WHITE BLOOD COUNT 15.4 10^3/uL (4.0-10.0)
--- NOTE | 2019-02-24 08:01 | NUR ---
POD#1 S: Doing well w/o complaints. Pain well controlled. Tolerating reg diet. +ambulation O: vss, AF Gen: well appearing abd: soft, appropriately tender incision: dressed ext: neg calf tenderness A/P: POD # 1 s/p repeat c/s recovering in stable condition Poorly controlled IDDM - sliding scale -cont routine postoperative care Arabella Matson MD
[2019-02-24] MEDS ORDERED: OXYC1TAB23 PO (08:13)
[2019-02-24] MEDS: DOCUSATE SODIUM 100 MG CAP PO SCH ×2 (09:25→21:11)
[2019-02-24 10:00] VITALS: BP 123/65
[2019-02-24] MEDS: PRENATAL VITAMINS CHEWABLE TABLET PO SCH (10:42)
[2019-02-24] MEDS: PERCOCET 5MG/325MG TAB PO PRN ×2 (12:30→17:55)
[2019-02-24 14:00] VITALS: BP 119/64
[2019-02-24] MEDS: IBUPROFEN 800 MG TAB PO SCH ×2 (15:29→22:48)
[2019-02-24] MEDS: HumaLOG INSULIN (NovoLOG) PER UNIT SC SCH ×2 (15:49→18:31)
[2019-02-24 17:47] VITALS: BP 111/63
[2019-02-25] MEDS: IBUPROFEN 800 MG TAB PO SCH ×3 (06:07→22:25)
[2019-02-25] MEDS: PERCOCET 5MG/325MG TAB PO PRN ×3 (06:16→22:25)
[2019-02-25 06:29] VITALS: BP 114/64
[2019-02-25] MEDS: HumaLOG INSULIN (NovoLOG) PER UNIT SC SCH ×3 (07:30→17:30)
[2019-02-25] MEDS: PRENATAL VITAMINS CHEWABLE TABLET PO SCH (09:47)
[2019-02-25] MEDS: DOCUSATE SODIUM 100 MG CAP PO SCH ×2 (09:47→21:57)
[2019-02-25 18:00] VITALS: BP 126/64
[2019-02-26] MEDS: PERCOCET 5MG/325MG TAB PO PRN ×2 (05:09→10:33)
[2019-02-26 06:00] VITALS: BP 111/53
[2019-02-26] MEDS: IBUPROFEN 800 MG TAB PO SCH (06:04)
[2019-02-26] MEDS: HumaLOG INSULIN (NovoLOG) PER UNIT SC SCH (07:30)
[2019-02-26] MEDS: DOCUSATE SODIUM 100 MG CAP PO SCH (09:34)
[2019-02-26] MEDS: PRENATAL VITAMINS CHEWABLE TABLET PO SCH (09:34)
[2019-02-26] MEDS ORDERED: IBUP80TA PO (09:50)
[2019-02-26] MEDS ORDERED: COLA100C5 PO (09:50)
--- NOTE | 2019-02-26 10:02 | NUR ---
Correction: Pt is a [id number] Birdie Whitney DO
--- NOTE | 2019-02-26 10:02 | NUR ---
Discharge Summary Date of admission: 02/22/2019 Date of discharge:, 02/26/2019 Admitting diagnosis: 35+6 weeks gestation. Poorly controlled insulin-dependent gestational diabetes. History of prior low transverse section. Discharge diagnosis: Status post repeat low transverse section. Single, liveborn delivered via . Discharge Summary: 28 year-old G2 now P1001. She was admitted on 02/22/2019 at 35+6 weeks EGA with a diagnosis of. GDM A2, poorly controlled, IDDM. This prompted her to be admitted for corticosteroids prior to a planned delivery at 36 weeks. History of a prior low transverse section with plan of repeat low-transverse section. Her delivery was uncomplicated and productive of a live male with a birthweight of 3960 g, 8 lbs. 12 oz. The baby was admitted to the NICU. The patient's intraoperative and postoperative courses were uncomplicated. Her blood sugars were within normal limits without any need for insulin sliding scale, or oral hypoglycemic medication. This was consistent with gestational diabetes, she did not have a diagnosis of pre-gestational diabetes. By postoperative day #3, the patient was meeting all discharge criteria. Her pain was well controlled on oral pain meds. She was ambulating without assistance, voiding spontaneously, tolerating a regular diet, and her lochia/bleeding was minimal. Physical exam on date of discharge: Vitals: normotensive, normal HR, afebrile Heart: regular rate and rhythm with no murmurs, gallops, rubs. Lungs: clear to auscultation bilaterally, no wheezes, crackles, rales, ronchi Abd: soft, non-distended, appropriately tender. Normoactive bowel sounds. Incision: clean, dry, intact without surrounding erythema or induration. Ext: non-edematous, non-tender, negative Rebeca's sign bilaterally Assessment/Plan: 28 year-old G2 now P1001 status post repeat low transverse delivery on 02/23/2019 now postoperative day #3. Hemodynamically stable, afebrile, with good pain control. Meeting all discharge criteria. -Routine infectious, fever, pain, and bleeding precautions reviewed -Surgical wound/incisional care / precautions reviewed. -Discharge medications: Percocet, Motrin, Colace. -Outpatient follow up in 1-2 weeks for a routine incision / postoperative check. -She was also instructed to have a glucose tolerance test at 6-[address] Ramses Whitney, DO, FACOG
== END 2019-02-26 12:00 | disposition home or self-care (01) | DRG 773 ==
LOC: M LDO 14:07 → M LDI 16:05 → M OBS 02-23 13:51
PROVIDERS: ADMIT Obstetrics & Gynecology; ATTEND Obstetrics & Gynecology
PROC: 10D00Z1 Extraction of Products of Conception, Low, Open Approach (ICD-10-PCS; principal; 2019-02-23 10:30)
DX: O24.12 Pre-existing type 2 diabetes mellitus, in childbirth (principal); Z3A.35 35 weeks gestation of pregnancy; E11.65 Type 2 diabetes mellitus with hyperglycemia; O40.3XX0 Polyhydramnios, third trimester, not applicable or unspecified; Z37.0 Single live birth; Z79.4 Long term (current) use of insulin

== ENCOUNTER 2020-06-15 15:45 | Emergency (ER) | payer OTHER ==
[~2020-06-15] VITALS: Ht 162.6 cm; Wt 94.7 kg
[~2020-06-15 15:45] MED LIST changes: +COLA100C5 PO; +IBUP80TA PO; +OXYC1TAB23 PO
[2020-06-15] MEDS ORDERED: NS 1,000 ML IV ONE (16:45)
[2020-06-15 16:57] LABS: BASO % 0.4 % (0.0-1.0); EOS # 0.1 10^3/uL (0.0-0.5); HEMATOCRIT 42.2 % (36.0-47.0); LYMPH # 2.2 10^3/uL (1.5-5.0); LYMPH % 32.9 % (24.0-44.0); MEAN CORPUSCULAR HEMOGLOBIN 30.4 pg (27.0-33.0); MEAN CORPUSCULAR HGB CONC 33.2 g/dl (32.0-36.5); MEAN CORPUSCULAR VOLUME 91.5 fl (80.0-96.0); MONO # 0.6 10^3/uL (0.0-0.8); MONO % 8.3 % (0.0-5.0); NEUTROPHILS # 3.9 10^3/uL (1.5-8.5); NEUTROPHILS % 57.1 % (36.0-66.0); PLATELET COUNT, AUTOMATED 265 10^3/uL (150-450); RED BLOOD COUNT 4.61 10^6/uL (4.00-5.40); WHITE BLOOD COUNT 6.8 10^3/uL (4.0-10.0)
[2020-06-15 17:27] LABS: BLOOD UREA NITROGEN 14 MG/DL (7-18); CALCIUM LEVEL 9.5 MG/DL (8.5-10.1); CARBON DIOXIDE LEVEL 28 MEQ/L (21-32); CHLORIDE LEVEL 106 MEQ/L (98-107); GLOMERULAR FILTRATION RATE > 60.0 (>60); GLUCOSE, FASTING 124 MG/DL (70-100); POTASSIUM SERUM 5.2 MEQ/L (3.5-5.1); SODIUM LEVEL 139 MEQ/L (136-145)
--- NOTE | 2020-06-15 18:32 | REPVR ---
PROCEDURE INFORMATION: Exam: US Pelvis Complete, Transabdominal and US Pelvis, Transvaginal Exam date and time: 06/15/2020 5:39 PM Age: 30 years old Clinical indication: Condition or disease; Other: Menorrhagia; Additional info: Severe irreg vag bleeding TECHNIQUE: Imaging protocol: Real-time transabdominal and transvaginal pelvic ultrasound (complete) with image documentation. Transvaginal imaging was used for better evaluation of the endometrium and adnexa. COMPARISON: US OBS FOLL UP OR REPEAT EACH GES 02/22/2019 3:40 PM FINDINGS: Uterus/cervix: Uterus measures 10.5 x 4.5 x 6 cm. Myometrium unremarkable. Endometrial echo complex measures 6.2 mm. Small foci of apparent calcification demonstrated in the endometrium may be related to prior instrumentation and or endometritis. Right adnexa: Right ovary not visualized as patient was not able tolerate this portion of the exam. Left adnexa: Left ovary measures 3.6 x 1.6 x 2.6 cm. Volume 7.8 cc. Normal flow. Intraperitoneal space: Trace free fluid in the cul-de-sac. Bladder: Normal. IMPRESSION: 1. Possible remote endometritis in the endometrial lining. 2. Nonvisualized right ovary as described above. 3. Otherwise normal. Electronically signed by: Angel Berry On 06/15/2020 18:32:13 PM
[2020-06-15 19:13] VITALS: BP 110/59
[2020-06-15] MEDS ORDERED: KETOROLAC 30 MG/ML 1ML VIAL IV ONE (19:15)
[2020-06-15] MEDS ORDERED: PROV10TA PO (19:48)
[2020-06-18 17:16] LABS: CHLAMYDIA DNA AMPLIFICATION NEGATIVE (NEGATIVE); GC DNA AMPLIFICATION NEGATIVE (NEGATIVE)
== END 2020-06-15 19:57 | disposition home or self-care (01) ==
LOC: M ED 15:45
DX: N93.9 Abnormal uterine and vaginal bleeding, unspecified (principal); R51 Headache; R42 Dizziness and giddiness; R00.0 Tachycardia, unspecified
CPT/HCPCS: 36415; 76830; 76856; 80048; 81001; 84702; 85025; 86850; 86900; 86901; 87086; 87210; 87661; 93976; 96361; 96374; 99284; J1885

== ENCOUNTER → 2020-06-19 | Outpatient (REF) | payer OTHER ==
[~2020-06-19] MED LIST changes: +PROV10TA PO
[2020-06-19 17:36] LABS: FOLATE 18.9 NG/ML
== END ==
LOC: M LAB REF 16:44
PROVIDERS: ATTEND Registered Nurse
DX: R53.83 Other fatigue (principal)

== ENCOUNTER 2021-06-03 11:00 | Emergency (ER) | payer OTHER ==
[~2021-06-03] VITALS: Ht 162.6 cm; Wt 85.9 kg
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
--- NOTE | 2021-06-03 13:38 | REP ---
INDICATION: fall COMPARISON: None. TECHNIQUE: Four views right wrist. FINDINGS: There is no evidence of acute fracture, dislocation, or intrinsic bone disease.The joint spaces are unremarkable. IMPRESSION: No fracture or dislocation. <Electronically signed by Melchor Miles > 06/03/21 [id number]
[2021-06-03 13:58] VITALS: BP 136/86
== END 2021-06-03 14:11 | disposition home or self-care (01) ==
LOC: M ED 11:00
DX: M54.2 Cervicalgia (principal); S63.501A Unspecified sprain of right wrist, initial encounter; Y04.0XXA Assault by unarmed brawl or fight, initial encounter; Y92.099 Unspecified place in other non-institutional residence as the place of occurrence of the external cause; Y93.9 Activity, unspecified; Y99.9 Unspecified external cause status

== ENCOUNTER 2023-08-22 16:37 | Emergency (ER) | payer OTHER ==
[~2023-08-22] VITALS: Ht 162.6 cm; Wt 96.8 kg
[2023-08-22] MEDS ORDERED: ECOT81TA5 PO (17:29)
[2023-08-22 17:50] LABS: BASO % 0.4 % (0.0-1.0); EOS # 0.1 10^3/uL (0.0-0.5); EOS % 1.3 % (0.0-3.0); HEMATOCRIT 38.8 % (36.0-47.0); LYMPH # 3.1 10^3/uL (1.5-5.0); MEAN CORPUSCULAR HGB CONC 33.5 g/dl (32.0-36.5); MEAN CORPUSCULAR VOLUME 89.6 fl (80.0-96.0); MONO # 0.7 10^3/uL (0.0-0.8); MONO % 8.8 % (2.0-8.0); NEUTROPHILS # 3.9 10^3/uL (1.5-8.5); NEUTROPHILS % 50.2 % (36.0-66.0); PLATELET COUNT, AUTOMATED 258 10^3/uL (150-450); RED BLOOD COUNT 4.33 10^6/uL (4.00-5.40); WHITE BLOOD COUNT 7.8 10^3/uL (4.0-10.0)
[2023-08-22 18:26] LABS: CK-MB VALUE MASS < 1.0 NG/ML (<3.6)
[2023-08-22 18:27] LABS: BLOOD UREA NITROGEN 11 MG/DL (9-23); CALCIUM LEVEL 8.9 MG/DL (8.5-10.1); CARBON DIOXIDE LEVEL 26 MMOL/L (20-31); CHLORIDE LEVEL 107 MMOL/L (98-107); CREATININE FOR GFR 0.64 MG/DL (0.55-1.30); GLOMERULAR FILTRATION RATE > 60.0 (>60); GLUCOSE, FASTING 100 MG/DL (60-100); POTASSIUM SERUM 3.9 MMOL/L (3.5-5.1); SODIUM LEVEL 143 MMOL/L (136-145)
[2023-08-22 18:30] LABS: CPK CREATINE PHOSPHOKINASE 101 U/L (34-145); MB/CK RELATIVE INDEX 0.99 (< OR =4)
[2023-08-22 18:38] LABS: HCG, SERUM QUALITATIVE NEGATIVE (NEGATIVE)
[2023-08-22 19:23] LABS: CK-MB VALUE MASS < 1.0 NG/ML (<3.6)
[2023-08-22 19:25] LABS: CPK CREATINE PHOSPHOKINASE 100 U/L (34-145)
[2023-08-22] MEDS ORDERED: HOLTER MONITOR XX (20:34)
[2023-08-22 20:55] VITALS: BP 109/74
[2023-08-22 20:56] VITALS: TEMP 97.4; O2SAT 99
== END 2023-08-22 20:58 | disposition home or self-care (01) ==
LOC: M ED 16:37
DX: R00.2 Palpitations (principal); R07.89 Other chest pain; Z79.82 Long term (current) use of aspirin

== ENCOUNTER → 2023-11-09 | Outpatient (REF) ==
[~2023-11-09] MED LIST changes: +ECOT81TA5 PO; +HOLTER MONITOR XX
== END ==
LOC: M LAB 15:04
PROVIDERS: ATTEND Family Medicine
DX: Z00.00 Encounter for general adult medical examination without abnormal findings (principal)

== ENCOUNTER → 2023-11-11 | Outpatient (REF) | LOC: M RAD 14:41 | DX: Z01.89 Encounter for other specified special examinations (principal) ==

== ENCOUNTER 2024-05-23 19:31 | Observation (INO) | payer OTHER ==
[~2024-05-23] VITALS: Ht 165.1 cm; Wt 98.0 kg
[~2024-05-23 19:31] MED LIST changes: +ONDA-282 PO; -ONDA4TAB6 PO
[2024-05-23 20:23] LABS: VENOUS BASE EXCESS -0.1 (-2.0-2.0); VENOUS HCO3 24.6 MMOL/L (23.0-27.0); VENOUS O2 SATURATION 98.7 % (60.0-80.0); VENOUS PARTIAL PRESSURE CO2 40.2 mmHg (38.0-50.0); VENOUS PARTIAL PRESSURE O2 132.5 mmHg (30.0-50.0); VENOUS PH 7.404 UNITS (7.330-7.430); VENOUS STANDARD HCO3 24.4 MMOL/L; VENOUS TOTAL CO2 25.8 MMOL/L (24.0-28.0)
[2024-05-23 20:45] LABS: BASO % 0.5 % (0.0-1.0); EOS # 0.2 10^3/uL (0.0-0.5); EOS % 2.6 % (0.0-3.0); HEMATOCRIT 37.2 % (36.0-47.0); HEMOGLOBIN 12.8 g/dl (12.0-15.5); LYMPH # 2.7 10^3/uL (1.5-5.0); MEAN CORPUSCULAR HGB CONC 34.4 g/dl (32.0-36.5); MEAN CORPUSCULAR VOLUME 87.3 fl (80.0-96.0); MONO # 0.6 10^3/uL (0.0-0.8); MONO % 9.1 % (2.0-8.0); NEUTROPHILS % 46.6 % (36.0-66.0); PLATELET COUNT, AUTOMATED 223 10^3/uL (150-450); RED BLOOD COUNT 4.26 10^6/uL (4.00-5.40); WHITE BLOOD COUNT 6.5 10^3/uL (4.0-10.0)
[2024-05-23 20:56] LABS: LIPASE 26 U/L (12-53)
[2024-05-23 21:06] LABS: ALBUMIN 3.5 G/DL (3.2-5.2); ALKALINE PHOSPHATASE 122 U/L (46-116); ALT/SGPT 20 U/L (7.0-40); AST/SGOT 10 U/L (<34); BILIRUBIN,DIRECT < 0.1 MG/DL (<0.4); BILIRUBIN,TOTAL 0.3 MG/DL (0.3-1.2); BLOOD UREA NITROGEN 10 MG/DL (9-23); CALCIUM LEVEL 9.5 MG/DL (8.5-10.1); CARBON DIOXIDE LEVEL 26 MMOL/L (20-31); CHLORIDE LEVEL 104 MMOL/L (98-107); CREATININE FOR GFR 0.71 MG/DL (0.55-1.30); GLOMERULAR FILTRATION RATE > 60.0 (>60); GLUCOSE, FASTING 481 MG/DL (60-100); POTASSIUM SERUM 4.3 MMOL/L (3.5-5.1); SODIUM LEVEL 137 MMOL/L (136-145); TOTAL PROTEIN 7.2 G/DL (5.7-8.2)
[2024-05-23 21:08] LABS: HEMOGLOBIN A1c 9.2 % (4.0-6.0)
[2024-05-23 21:43] LABS: ACETONE/KETONE 0.12 MMOL/L (0.02-0.27)
[2024-05-23 21:55] LABS: OSMOLALITY SERUM 312 MOSM/KG (275-295)
[2024-05-23] MEDS: HumuLIN R (REGULAR) INSULIN (NovoLIN R) **100U/ML** PER UNIT IV ONE (22:20)
[2024-05-23] MEDS: NS 1,000 ML IV SCH ×2 (22:20→23:51)
[2024-05-23] MEDS ORDERED: HOME MED LIST COMPLETE! XX SCH (22:45)
[2024-05-23] MEDS ORDERED: MAALOX 30 ML SUSP *UDC PO PRN (23:20)
[2024-05-23] MEDS ORDERED: MOM 30ML SUSPENSION UDC PO PRN (23:20)
[2024-05-23 23:49] LABS: MAGNESIUM LEVEL 1.8 MG/DL (1.8-2.4)
[2024-05-23 23:56] LABS: HCG, SERUM QUALITATIVE NEGATIVE (NEGATIVE)
[2024-05-24 00:35] LABS: INR 0.99; PROTHROMBIN TIME 12.8 SECONDS (12.5-14.5)
[2024-05-24] MEDS: INSULIN LISPRO (NovoLOG) PER UNIT SC SCH ×3 (00:55→21:00)
[2024-05-24 06:02] LABS: HEMATOCRIT 37.1 % (36.0-47.0); HEMOGLOBIN 12.3 g/dl (12.0-15.5); MEAN CORPUSCULAR HEMOGLOBIN 29.5 pg (27.0-33.0); MEAN CORPUSCULAR HGB CONC 33.2 g/dl (32.0-36.5); PLATELET COUNT, AUTOMATED 208 10^3/uL (150-450); RED BLOOD COUNT 4.17 10^6/uL (4.00-5.40); WHITE BLOOD COUNT 5.6 10^3/uL (4.0-10.0)
[2024-05-24 06:41] LABS: ALBUMIN 3.2 G/DL (3.2-5.2); ALKALINE PHOSPHATASE 107 U/L (46-116); ALT/SGPT 18 U/L (7.0-40); AST/SGOT 8 U/L (<34); BILIRUBIN,TOTAL 0.3 MG/DL (0.3-1.2); BLOOD UREA NITROGEN 9 MG/DL (9-23); CALCIUM LEVEL 8.8 MG/DL (8.5-10.1); CARBON DIOXIDE LEVEL 28 MMOL/L (20-31); CHLORIDE LEVEL 107 MMOL/L (98-107); CREATININE FOR GFR 0.64 MG/DL (0.55-1.30); GLOMERULAR FILTRATION RATE > 60.0 (>60); GLUCOSE, FASTING 247 MG/DL (60-100); MAGNESIUM LEVEL 1.7 MG/DL (1.8-2.4); POTASSIUM SERUM 4.1 MMOL/L (3.5-5.1); SODIUM LEVEL 140 MMOL/L (136-145); TOTAL PROTEIN 6.6 G/DL (5.7-8.2)
[2024-05-24 08:30] VITALS: BP 126/89; TEMP 98.4; O2SAT 99
[2024-05-24] MEDS: MAG SULF 1GM/100ML (MAG RUN) 1 GM in IV 1 EA IV ONE (08:44)
[2024-05-24] MEDS: DOCUSATE SODIUM 100MG CAPSULE PO SCH (08:44)
[2024-05-24] MEDS: ENOXAPARIN 40MG/0.4ML SYRINGE (J1650 PER 10MG) SC SCH (08:45)
[2024-05-24 12:00] VITALS: BP 109/69; TEMP 97.6; O2SAT 99
[2024-05-24] MEDS: LEVEMIR (INSULIN DETEMIR) 1 UNITS/0.01ML SC ONE ×2 (12:30→15:08)
[2024-05-24] MEDS: metFORMIN (GLUCOPHAGE) 500MG TAB PO ONE (15:08)
[2024-05-24] MEDS: ACETAMINOPHEN TAB 650MG DOSE (2X325MG) PO PRN (15:51)
[2024-05-24 20:50] VITALS: BP 126/78; TEMP 97.3; O2SAT 97
[2024-05-24] MEDS ORDERED: LEVEMIR (INSULIN DETEMIR) 1 UNITS/0.01ML SC SCH (21:00)
[2024-05-24] MEDS: SITagliptin 50 MG TAB (JANUVIA) PO SCH (21:20)
[2024-05-25 04:47] VITALS: BP 126/76; TEMP 97.5; O2SAT 97
[2024-05-25] MEDS: LEVEMIR (INSULIN DETEMIR) 1 UNITS/0.01ML SC SCH (08:13)
[2024-05-25] MEDS: metFORMIN (GLUCOPHAGE) 500MG TAB PO SCH (08:15)
[2024-05-25 08:23] LABS: BASO % 0.5 % (0.0-1.0); EOS # 0.1 10^3/uL (0.0-0.5); EOS % 1.6 % (0.0-3.0); HEMATOCRIT 37.8 % (36.0-47.0); HEMOGLOBIN 12.8 g/dl (12.0-15.5); LYMPH # 2.4 10^3/uL (1.5-5.0); LYMPH % 28.9 % (24.0-44.0); MEAN CORPUSCULAR HGB CONC 33.9 g/dl (32.0-36.5); MEAN CORPUSCULAR VOLUME 88.5 fl (80.0-96.0); MONO # 0.6 10^3/uL (0.0-0.8); MONO % 6.8 % (2.0-8.0); NEUTROPHILS # 5.1 10^3/uL (1.5-8.5); PLATELET COUNT, AUTOMATED 232 10^3/uL (150-450); RED BLOOD COUNT 4.27 10^6/uL (4.00-5.40); WHITE BLOOD COUNT 8.3 10^3/uL (4.0-10.0)
[2024-05-25 08:43] LABS: BLOOD UREA NITROGEN 13 MG/DL (9-23); CALCIUM LEVEL 9.3 MG/DL (8.5-10.1); CARBON DIOXIDE LEVEL 26 MMOL/L (20-31); CHLORIDE LEVEL 106 MMOL/L (98-107); CREATININE FOR GFR 0.63 MG/DL (0.55-1.30); GLOMERULAR FILTRATION RATE > 60.0 (>60); GLUCOSE, FASTING 222 MG/DL (60-100); MAGNESIUM LEVEL 1.7 MG/DL (1.8-2.4); SODIUM LEVEL 138 MMOL/L (136-145)
[2024-05-25] MEDS: SITagliptin 50 MG TAB (JANUVIA) PO SCH (11:55)
[2024-05-25 12:00] VITALS: BP 123/76; TEMP 97.5; O2SAT 99
[2024-05-25] MEDS ORDERED: GLUC1TES2 XX (13:14)
[2024-05-25] MEDS ORDERED: JANU100T PO (13:14)
[2024-05-25] MEDS ORDERED: BASA100I SC (13:14)
[2024-05-25] MEDS ORDERED: BLOOKIT21 XX (13:14)
[2024-05-25] MEDS ORDERED: ALCOPAD25 TOP (13:14)
[2024-05-25] MEDS ORDERED: PEN-61 SC (13:14)
[2024-05-25] MEDS ORDERED: LANC30MI XX (13:14)
[2024-05-25] MEDS ORDERED: METF-839 PO (13:14)
[2024-05-25] MEDS ORDERED: METF10004 PO (14:27)
[2024-05-25 15:55] LABS: ERYTHROCYTE SEDIMENTATION RATE 46 mm/hr (0-20)
[2024-05-25] MEDS: MAGNESIUM OXIDE 400MG TAB (MAG-OX) PO ONE (16:32)
[2024-05-25] MEDS: metFORMIN (GLUCOPHAGE) 1000MG TABLET PO SCH (18:01)
== END 2024-05-25 18:40 | disposition home or self-care (01) ==
LOC: M ED 19:31 → M ED INP 19:32 → M MS5PR 05-24 08:38
PROVIDERS: ADMIT Family Medicine; ATTEND Internal Medicine
DX: E11.65 Type 2 diabetes mellitus with hyperglycemia (principal); H53.8 Other visual disturbances; Z86.32 Personal history of gestational diabetes; R06.02 Shortness of breath; R51.9 Headache, unspecified; E66.9 Obesity, unspecified; Z68.37 Body mass index [BMI] 37.0-37.9, adult; Z98.891 History of uterine scar from previous surgery; Z83.3 Family history of diabetes mellitus
CPT/HCPCS: 36415; 70450; 71046; 80048; 80053; 80076; 81001; 82010; 82803; 83036; 83690; 83735; 83880; 83930; 84703; 85025; 85027; 85610; 85652; 86140; 87086; 93005; 93041; 93306; 94760; 96361; 96372; 96374; 99285; J1650; J1815; J3475

== ENCOUNTER → 2024-12-28 | Outpatient (CLI) | payer OTHER ==
[~2024-12-28] MED LIST changes: +ALCOPAD25 TOP; +BASA100I SC; +BLOOKIT21 XX; +GLUC1TES2 XX; +JANU100T PO; +LANC30MI XX; +METF-839 PO; +METF10004 PO; +PEN-61 SC
[2024-12-28 09:54] LABS: HEMATOCRIT 40.4 % (36.0-47.0); HEMOGLOBIN 13.3 g/dl (12.0-15.5); MEAN CORPUSCULAR HEMOGLOBIN 29.8 pg (27.0-33.0); MEAN CORPUSCULAR HGB CONC 32.9 g/dl (32.0-36.5); MEAN CORPUSCULAR VOLUME 90.4 fl (80.0-96.0); PLATELET COUNT, AUTOMATED 258 10^3/uL (150-450); RED BLOOD COUNT 4.47 10^6/uL (4.00-5.40); WHITE BLOOD COUNT 5.4 10^3/uL (4.0-10.0)
[2024-12-28 10:25] LABS: ALBUMIN 3.7 G/DL (3.2-5.2); ALKALINE PHOSPHATASE 77 U/L (35-104); ALT/SGPT 29 U/L (7.0-40); AST/SGOT 18 U/L (<34); BILIRUBIN,TOTAL 0.3 MG/DL (0.3-1.2); BLOOD UREA NITROGEN 13 MG/DL (9-23); CALCIUM LEVEL 9.7 MG/DL (8.5-10.1); CARBON DIOXIDE LEVEL 30 MMOL/L (20-31); CHLORIDE LEVEL 106 MMOL/L (98-107); CHOLESTEROL LEVEL 173 MG/DL (<200); CHOLESTEROL RISK RATIO 3.46 (<5); CREATININE FOR GFR 0.71 MG/DL (0.55-1.30); GLOMERULAR FILTRATION RATE > 60.0 (>60); GLUCOSE, FASTING 91 MG/DL (60-100); HDL CHOLESTEROL 49.9 MG/DL (>40); IRON (FE) 87 UG/DL (50-170); LDL CHOLESTEROL 105.3 MG/DL (<100); NON-HDL-C 123.1 MG/DL; POTASSIUM SERUM 4.3 MMOL/L (3.5-5.1); SODIUM LEVEL 142 MMOL/L (136-145); TOTAL PROTEIN 7.6 G/DL (5.7-8.2); TRIGLYCERIDES LEVEL 89 MG/DL (<150)
[2024-12-28 10:26] LABS: THYROID STIMULATING HORMONE 1.382 uIU/ML (0.55-4.78); TOTAL 25(OH) VITAMIN D 24.6 NG/ML (20.0-100.0)
[2024-12-28 10:28] LABS: FREE T4 0.82 NG/DL (0.89-1.76); HEMOGLOBIN A1c 5.6 % (4.0-6.0)
[2024-12-28 10:32] LABS: VITAMIN B12 LEVEL > 2000 PG/ML (211-911)
== END ==
LOC: M LAB 09:17
PROVIDERS: ATTEND Physician Assistant
DX: E11.9 Type 2 diabetes mellitus without complications (principal)

== ENCOUNTER → 2025-04-20 | Outpatient (CLI) | payer OTHER ==
[2025-04-20 12:52] LABS: FREE T4 0.88 NG/DL (0.89-1.76)
[2025-04-20 12:55] LABS: THYROID PEROXIDASE ANTIBODY < 28.0 U/ML (<60.0)
[2025-04-23 13:08] LABS: THRYOGLOBULIN ANTIBODIES (ATA) < 1 IU/mL (< or = 1); THYROGLOBULIN QUANTITATIVE 13.8 ng/mL (2.8-40.9)
== END ==
LOC: M WUC 09:03
PROVIDERS: ATTEND Physician Assistant
DX: E03.9 Hypothyroidism, unspecified (principal)